=== PATIENT | male | born 1945 | race Caucasian/White ===

== ENCOUNTER 2019-10-04 15:24 | Emergency (ER) | payer MEDICARE, BC ==
[~2019-10-04] VITALS: Ht 177.8 cm; Wt 115.8 kg
[~2019-10-04 15:24] MED LIST changes: -BACL-19 PO; -FLUT1BLS9 PO; -GABA600T7 PO; -OMEP40CA42 PO; -OXYC5TAB2 PO; -PIOG30TA67 PO; -SUCR1TAB PO
--- NOTE | 2019-10-04 15:46 | NUR ---
PT PRESENTS TO ED WITH SWELLING TO RT LEG, BACK OF THIGH. PT DX WITH DVT VIA US ACROSS THE STREET AT OUTPT APPT. SENT BY DR HERMAN TO ED FOR EVALUATION
[2019-10-04] MEDS ORDERED: SUCR1TAB PO (16:00)
[2019-10-04] MEDS ORDERED: OXYC5TAB2 PO (16:00)
[2019-10-04] MEDS ORDERED: GABA600T7 PO (16:00)
[2019-10-04] MEDS ORDERED: ALBU8.5H8 INH (16:00)
[2019-10-04] MEDS ORDERED: OMEP40CA42 PO (16:01)
[2019-10-04] MEDS ORDERED: BACL-19 PO (16:01)
[2019-10-04] MEDS ORDERED: PIOG30TA67 PO (16:01)
[2019-10-04] MEDS ORDERED: FLUT1BLS9 PO (16:01)
[2019-10-04] MEDS ORDERED: OXYcodone/APAP 10/325MG TABLET ONE (16:11)
[2019-10-04] MEDS ORDERED: OXYcodone/APAP 10/325MG TABLET PO ONE (16:30)
[2019-10-04 16:43] VITALS: BP 156/75
== END 2019-10-04 16:45 | disposition home or self-care (01) ==
LOC: ED 16:30
DX: I82.431 Acute embolism and thrombosis of right popliteal vein (principal); Z98.61 Coronary angioplasty status
CPT/HCPCS: 99284

== ENCOUNTER → 2019-10-04 | Outpatient (CLI) | payer MEDICARE, BC ==
[~2019-10-04] MED LIST: ACET1TAB32 PO; ACET500T64 PO; ALBU8.5H8 INH; ALLO300T PO; AMLO-150 PO; ASPI-515 PO; BACL-19 PO; CAND32TA7 PO; CHOL500015 PO; CLOP75TA PO; FLUT1BLS9 PO; FLUT1DIS IH; FLUT50DI INH; GABA300C10 PO; GABA600T7 PO; LEVO75TA5 PO; METF850T10 PO; MINE3.5O4 EACHEYE; MULT-642 PO; NITR0.4T41 SL; OMEP40CA42 PO; OXYC5TAB2 PO; PANT40TA3 PO; PIOG30TA67 PO; POTA10CA PO; PROP10DR4 EACHEYE; RANI150T4 PO; SILD50TA PO; SUCR1TAB PO; TAMS0.4C2 PO; TRAM50TA2 PO; UBID300C PO; [UNRECOGNIZED DRUG - REMARK] PO
== END | disposition home or self-care (01) ==
LOC: CFH 13:46
PROVIDERS: ATTEND Physician Assistant Surgical
DX: I82.431 Acute embolism and thrombosis of right popliteal vein (principal); M25.561 Pain in right knee